=== PATIENT | male | born 2000 | race African-American/Black ===

== ENCOUNTER 2021-02-11 18:10 | Emergency (ER) | payer BC, OTHER ==
[~2021-02-11] VITALS: Ht 182.9 cm; Wt 88.0 kg
[2021-02-11 18:12] VITALS: BP 132/75
== END 2021-02-11 19:05 | disposition home or self-care (01) ==
LOC: ED 18:50
DX: U07.1 COVID-19 (principal); J06.9 Acute upper respiratory infection, unspecified
CPT/HCPCS: 99283; U0003; U0005